=== PATIENT | male | born 1930 | race Caucasian/White ===

== ENCOUNTER → 2017-06-03 | Outpatient (CLI) | payer MEDICARE ==
[2017-06-03 15:09] LABS: BLOOD UREA NITROGEN 19 mg/dL (7-20); CREATININE RESULT 1.02 mg/dL (0.52-1.25)
== END ==
LOC: OD 13:55
PROVIDERS: ATTEND Family Medicine
DX: M16.11 Unilateral primary osteoarthritis, right hip (principal)
CPT/HCPCS: 36415; 82565; 84520